=== PATIENT | male | born 1945 | race Caucasian/White ===

== ENCOUNTER → 2018-04-10 | Outpatient (CLI) | payer OTHER ==
[~2018-04-10] MED LIST: ASPIRIN325 MG PO; CYMBALTA60 MG PO; LISINOPRIL40 MG PO; LYRICA300 MG PO; METFORMIN HCL500 MG PO; METOPROLOL TART50 MG PO
== END | disposition home or self-care (01) ==
LOC: EEG 10:00
DX: R55 Syncope and collapse (principal)
CPT/HCPCS: 95819